=== PATIENT | female | born 1945 | race Caucasian/White ===

== ENCOUNTER → 2024-05-15 | Outpatient (CLI) | payer MEDICARE, BC, SELFPAY ==
--- NOTE | 2024-05-15 13:48 | XR_ITS ---
Examination: Left knee 4 views TECHNIQUE: AP oblique lateral axial left knee 4 views Exam date and time: May 15, 2024 1407 hours INDICATIONS: Acute fracture proximal tibia July 31, 2023 FINDINGS: Postop reduction internal fixation fracture proximal tibia Fracture is healed with stable and satisfactory alignment No patellar dislocation IMPRESSION: Operative reduction internal fixation healed fracture proximal tibia with satisfactory alignment
== END | disposition home or self-care (01) ==
LOC: SDIM 13:41
PROVIDERS: PCP Internal Medicine; Referring Provider Internal Medicine; Visit Provider Internal Medicine
DX: M25.562 Pain in left knee (principal); Z87.81 Personal history of (healed) traumatic fracture
CPT/HCPCS: 73564

== ENCOUNTER → 2024-07-05 | Outpatient (CLI) | payer MEDICARE, BC, SELFPAY ==
--- NOTE | 2024-07-05 16:31 | XR_ITS ---
Examination: PA lateral chest 2 views TECHNIQUE: Upright PA lateral chest 2 views Exam date and time: July 05, 2024 1640 hours Comparison May 02, 2024 INDICATIONS: Shortness of breath beginning one month ago. FINDINGS: Mild heart failure Prosthetic aortic valve Mild to moderate enlargement left ventricle CABG Prominent vascular congestion. Early septal edema at the lung bases IMPRESSION: Mild heart failure
== END | disposition home or self-care (01) ==
PROVIDERS: PCP Internal Medicine; Referring Provider Student in an Organized Health Care Education/Training Program; Visit Provider Student in an Organized Health Care Education/Training Program
DX: I50.89 Other heart failure (principal)
CPT/HCPCS: 71046

== ENCOUNTER 2024-07-09 13:28 | Emergency (ER) | payer MEDICARE, BC, SELFPAY ==
[2024-07-09] VITALS (13 sets, daily range): BP systolic 122–176; BP diastolic 55–71; PULSE 64–82; RESP 15–87; TEMP 36.9–39.4; O2SAT 91–100; BMI 29.2
--- NOTE | 2024-07-09 13:45 | XR_ITS ---
Examination: AP chest single view TECHNIQUE: AP portable sitting chest single view Independent I'm going to return 2024 at 1358 hours Comparison July 05, 2024 INDICATIONS: Shortness of breath today. FINDINGS: Mild heart failure CABG Mild enlargement left ventricle Prominent vascular congestion with early septal edema at the lung bases Consider superimposed pneumonia left base IMPRESSION: Mild heart failure Suspicious for superimposed pneumonia left base
--- NOTE | 2024-07-09 13:45 | EKG_ITS ---
[facility] Test Date: 2024-07-09 Pat Name: STEPHON FARLEY Department: Room: - Gender: Female Equity Research Analyst: : 1945 Requested By: Mckinley Eller Order Number: [id number] Reading MD: Mckinley Eller Measurements Intervals [place] Rate: 77 P: 35 [place]: 162 QRS: -6 QRSD: 88 T: 67 QT: 406 QTc: 459 Interpretive Statements SINUS RHYTHM NONSPECIFIC ST & T-WAVE ABNORMALITY Compared to ECG 03/23/2024 18:20:20 T-wave abnormality now present Myocardial infarct finding no longer present /store/S0/[id number]
--- NOTE | 2024-07-09 13:51 | PD.EDADULT ---
ED General RME/HPI General Chief complaint: Shortness of Breath/Dyspnea Stated complaint: SOB Time Seen by Provider: 07/09/24 13:44 Arrival date/time: 07/09/24 13:28 CC: Shortness of breath with a fall yesterday EMS report the patient had sats 88 to 90% on room air does not wear oxygen at home. The patient is awake alert stating she can use to be short of breath in spite of albuterol inhaler. Patient denies fever however EMS report warm to touch. Related Data Home Medications ?Medication ?Instructions ?Recorded ?Confirmed levothyroxine 50 mcg tablet 50 mcg PO QDAY 12/17/17 11/02/23 atorvastatin 10 mg tablet 10 mg PO QDAY 01/12/20 11/02/23 citalopram 40 mg tablet 40 mg PO QDAY PRN Anxiety 01/12/20 11/02/23 gabapentin 800 mg tablet 300 mg PO QID 05/05/22 11/02/23 fluticasone fur. 200 mcg-umeclid 1 inh inhalation QDAY 09/14/22 11/02/23 62.5 mcg-vilant 25 mcg inhalat.powder (Trelegy Ellipta) albuterol sulfate 90 mcg/actuation 2 puff inhalation BID PRN 09/16/22 11/02/23 aerosol inhaler Shortness Of Breath Or Wheezing pantoprazole 40 mg tablet,delayed 40 mg PO BID 02/25/23 11/02/23 release dicyclomine 10 mg capsule 10 mg PO TID 06/02/23 11/02/23 lorazepam 0.5 mg tablet (Ativan) 0.5 mg PO QDAY PRN Anxiety 06/02/23 11/02/23 Previous Rx's ?Medication ?Instructions ?Recorded aspirin 81 mg capsule 81 mg PO QDAY #30 caps 09/22/22 furosemide 40 mg tablet 40 mg PO QDAY #30 tabs 03/26/24 lisinopril 2.5 mg tablet 2.5 mg PO QDAY #30 tabs 03/26/24 acetaminophen 300 mg-codeine 30 mg 2 tab PO TID PRN pain #20 tabs 07/10/24 tablet albuterol sulfate 90 mcg/actuation 2 inh inhalation QID PRN shortness 07/10/24 aerosol inhaler of breath or wheezing #8.5 grams prednisone 20 mg tablet 40 mg PO DAILY 5 days #10 tabs 07/10/24 Allergies Allergy/AdvReac Type Severity Reaction Status Date / Time adhesive Allergy Intermediate Rash Verified 03/22/24 19:17 fluticasone Allergy Difficulty Verified 03/22/24 19:17 [From Advair Diskus] Breathing salmeterol Allergy Difficulty Verified 03/22/24 19:17 [From Advair Diskus] Breathing Course Course Course Narrative: Upon a more detailed interview with the patient at 1513, the patient is aware that she fell last night secondary to feeling legs wobbly and woozy . Patient thinks it may be due to the cough medicine that was given to her by her doctor in addition to the amoxicillin that she is taken for the flu . Patient is COVID-positive, but significantly weak, daughter states patient lives by herself in a 900 square foot house and is unable to walk from 1 side to the other without falling as evidenced by the fall today. At this time patient needs physical therapy assessment for potential SNF placement. Quality Measures VTE prophylaxis Orders Category Date Time Status Bedside COVID-19 Antigen Test NOW Care 07/09/24 14:25 Completed Bedside COVID-19 Antigen Test NOW Care 07/09/24 15:06 Completed Bedside COVID-19 Antigen Test NOW Care 07/10/24 10:13 Completed Bedside Influenza A&B Antigen Test NOW Care 07/09/24 14:25 Completed Bedside Influenza A&B Antigen Test NOW Care 07/09/24 15:06 Completed Bedside Influenza A&B Antigen Test NOW Care 07/10/24 10:13 Completed Narrow Gauge Operator STAT Care 07/09/24 14:25 Completed Continuous Pulse Oximetry STAT Care 07/09/24 14:25 Completed EKG (ED ONLY) *Do not use* NOW Care 07/09/24 13:45 Completed In and Out Catheter X1PRN Care 07/09/24 14:25 Completed Insert IV NOW Care 07/09/24 14:25 Completed NPO STAT Care 07/09/24 14:25 Completed Strict Intake and Output Routine Care 07/09/24 14:25 Ordered Home Health Referral Routine Cons 07/10/24 10:44 Active Referral Physical Therapy Stat Cons 07/09/24 17:33 Completed Diet Carbohydrate Consistent Low Diet 07/10/[address] head/brain wo con Stat Exams 07/09/24 15:14 Completed EKG (ED Only) Stat Exams 07/09/24 13:45 Ordered XR chest 1V Stat Exams 07/09/24 13:45 Completed B-Type Natriuretic Peptide Stat Lab 07/09/24 14:14 Completed Blood Culture (Lab) Stat Lab 07/09/24 14:40 Results CBC Stat Lab 07/09/24 14:14 Completed Comprehensive Metabolic Panel Stat Lab 07/09/24 14:14 Completed Drug Screen,Urine Stat Lab 07/09/24 15:32 Completed LDH (Lactate Dehydrogenase) Stat Lab 07/09/24 14:14 Completed Lactate (Lactic Acid) Stat Lab 07/09/24 14:47 Completed Lipase Stat Lab 07/09/24 14:14 Completed Magnesium Stat Lab 07/09/24 14:14 Completed Partial Thromboplastin Time Stat Lab 07/09/24 14:14 Completed Phosphorous Stat Lab 07/09/24 14:14 Completed Procalcitonin Stat Lab 07/09/24 14:14 Completed Prothrombin Time with INR Stat Lab 07/09/24 14:14 Completed Troponin I Stat Lab 07/09/24 14:14 Completed Urinalysis Stat Lab 07/09/24 15:32 Completed Urine Culture Stat Lab 07/09/24 15:32 Received ALBUTEROL RT 0.5ml [Proventil Rt 0.5ml] Med 07/09/24 13:53 Discontinued 2.5 mg INH X1 ONE Acetaminophen Tab [Tylenol Tab] Med 07/09/24 15:32 Discontinued 650 mg PO X1 ONE Ibuprofen Tab [Motrin Tab] Med 07/09/24 20:11 Discontinued 600 mg PO X1 ONE Influenza Quad Vaccine Med 07/09/24 14:25 Discontinued 0.5 ml IMI .ONCE ONE Sodium Chloride Rt Tiara 0.9% [NS Rt Tiara 0.9%] Med 07/09/24 13:53 Discontinued 3 ml INH PRN PRN Oxygen Delivery NOW RT 07/09/24 14:25 Completed Vital Signs Vital signs: Vital Signs Temperature 103.0 F H 07/09/24 13:55 Pulse Rate 79 07/09/24 13:55 Respiratory Rate 18 07/09/24 13:55 Blood Pressure 122/71 07/09/24 13:55 Pulse Oximetry (%) 96 07/09/24 13:55 Oxygen Delivery Method Nasal Cannula 07/09/24 13:55 Oxygen Flow Rate 6 07/09/24 13:[address] [facility] Patient data External records reviewed:: [facility] previous records Clinical information provided by:: patient Social determinants that could affect healthcare access:: none Patient has the following chronic illnesses:: COPD How is presenting disease/condition affected by chronic disease/condition?: exacerbated by Evaluation data The following diagnostics were reviewed and interpreted by me:: lab results and radiology exam(s) Lab and/or radiology exams considered but not ordered:: EKG performed at 1439 shows a ventricular rate of 77 SD interval 162 QRS of 88 QTc of [address] segment changes there is large baseline wander into 3 and aVF. Patient is COVID-positive CBC shows no leukocytosis stable anemia no thrombocytopenia CMP shows no acute electrolyte imbalances a mildly elevated creatinine 1.4 no transaminitis or T. bili elevation. BNP at 217 Pro-Pawel and lactic are negative Lipase is normal Urine with 1+ protein Head CT is interpreted by me read by radiology as negative for any acute finding requires emergent or meet intervention. Interpretation Summary: COVID with COPD Medications Medications considered but not ordered:: Patient be discharged home to stay on 2 L nasal cannula oxygen 24/7 for the next 10 days. Medication administrations:: Medication Administration History Discontinued Medications Acetaminophen (Acetaminophen 325 Mg Tablet) 650 mg PO X1 ONE Stop: 07/09/24 15:33 Last Admin: 07/09/24 15:36 Dose: 650 mg Documented By: BECK Albuterol (Albuterol Rt 2.5 Mg/0.5 Ml Nebu) 2.5 mg INH X1 ONE Stop: 07/09/24 13:54 Last Admin: 07/09/24 16:41 Dose: 2.5 mg Documented By: LD Ibuprofen (Ibuprofen Tab 600 Mg Tablet) 600 mg PO X1 ONE Stop: 07/09/24 20:12 Last Admin: 07/09/24 21:11 Dose: 600 mg Documented By: CVL Influenza Virus Vaccine Quadrival (Influenza Virus Quadrivalent 0.5 Ml Syringe) 0.5 ml IMi .ONCE ONE Stop: 07/09/24 14:26 Last Admin: 07/09/24 15:16 Dose: Not Given Documented By: GM Non-Admin Reason: Not Given Comments: PT UP TO DATE WITH FLU SHOT Sodium Chloride (Sodium Chloride Rt Tiara 0.9% 3 Ml Nebu) 3 ml INH PRN PRN PRN Reason: SOLN Stop: 08/08/24 13:52 Last Admin: 07/09/24 16:41 Dose: 3 ml Documented By: LD None Consultations Consultation(s) initiated? (list below): No Diagnosis Differential Diagnosis ED Complaint MDM: COVID-pneumonia CHF Most likely diagnosis given after review of the tests above:: COVID Admission Indicated Admission indicated?: not indicated Explain why admission is indicated or not indicated:: Stable Admission Request Was there a request for admission?: No Disposition Plan Disposition Plan: Discharge Discharge Attestation Discharge Attestation: The patient and all family members were given an opportunity to ask questions and understood the discharge instructions. Discharge instructions specifically effects, indications for sooner follow up or return to the emergency department, and the expected course of current diagnosis. Patient condition: Stable Medical Decision Making Differential Diagnosis Differential Diagnosis: COVID-pneumonia CHF Lab Data 07/09/24 14:14 07/09/24 14:14 Labs: Lab Results 07/09/24 07/09/24 07/09/24 Range/Units 14:14 14:47 15:32 WBC 6.6 (3.6-11.0) Thou/mm3 RBC 3.55 L (4.00-5.20) Miln/mm3 Hgb 10.4 L (12.0-16.0) g/dL Hct 32.3 L (36.0-46.0) % MCV 91 (80-100) fL MCH 29.3 (25.0-35.0) pg MCHC 32.2 (31.0-37.0) g/dl RDW Std Deviation 44.8 (36.4-46.3) fL Plt Count 173 (140-440) Thou/mm3 Neut % (Auto) 66 (37-80) % Lymph % (Auto) 19 (10-50) % [place] % (Auto) 13 H (0-12) % Eos % (Auto) 3 (0-10) % Baso % (Auto) 0 (0-2.5) % Neut # (Auto) 4.3 (1.8-7.7) Thou/mm3 Lymph # (Auto) 1.2 (1.0-4.8) Thou/mm3 [place] # (Auto) 0.8 (0.0-0.8) Thou/mm3 Eos # (Auto) 0.2 (0.0-0.5) Thou/mm3 Baso # (Auto) 0.0 (0.0-0.2) Thou/mm3 Immature Gran # (Auto) 0.02 H (0.00-0.00) Thou/mm3 Absolute Nucleated RBC 0.00 (0.00-0.00) Thou/mm3 Immature Gran % 0 (0-0) % Nucleated RBC % 0 (0) /100 WBC PT 11.8 (9.0-12.2) Seconds INR 1.1 (0.9-1.3) APTT 27.6 (22.0-36.0) Seconds Sodium 136 (136-145) mMol/L Potassium 5.0 (3.4-5.1) mMol/L Chloride 100 (98-107) mMol/L Carbon Dioxide 27.3 (20.0-31.0) mMol/L Anion Gap 9 (7-16) BUN 14 (9-23) mg/dL Creatinine 1.4 H (0.6-1.3) mg/dL Estim Creat Clear Calc 33.1 L (>60) mL/min eGFR 39 L (60 - ) See Note BUN/Creatinine Ratio 10 L (12-20) Ratio Glucose 153 H (74-106) mg/dL Calculated Osmolality 275 (275-295) Lactic Acid 1.8 (0.4-2.0) mMol/L Calcium 8.8 (8.3-10.6) mg/dL Corrected Calcium 8.8 (8.5-10.1) mg/dL Phosphorus 3.1 (2.4-5.1) mg/dL Magnesium 1.6 (1.6-2.6) mg/dL Total Bilirubin 0.6 (0.3-1.2) mg/dL AST 22 (0-34) U/L ALT 14 (10-49) U/L Alkaline Phosphatase 71 (46-116) U/L Lactate Dehydrogenase 370 H (120-246) U/L Troponin I < 0.020 (0.0-0.045) ng/mL B-Natriuretic Peptide 217 H (0-100) pg/mL Total Protein 6.5 (5.7-8.2) gm/dL Albumin 4.1 (3.4-4.8) gm/dL Globulin 2.4 (2.3-3.5) gm/dL Albumin/Globulin Ratio 1.7 (1.2-2.2) Lipase 47 (12-53) U/L Procalcitonin 0.12 (0.0-0.49) ng/ml Ur Collection Type Clean Catch Urine Color Yellow (Lt Yel-Yel) Urine Clarity Clear (Clear/Hazy) Urine pH 6.5 (5.0-7.0) Ur Specific [place] 1.013 (1.001-1.035) Urine Protein 1+ A (Neg - Trace) Urine Glucose (UA) Negative (Negative) Urine Ketones Negative (Negative) Urine Blood Negative (Negative) Urine Nitrite Negative (Negative) Urine Bilirubin Negative (Negative) Urine Urobilinogen (Auto) Negative (0.0-1.0) mg/dL Ur Leukocyte Esterase Negative (Negative) Urine RBC 2 (0-3) /hpf Urine WBC 1 (0-5) /hpf Ur Squamous Epith Cells 0 (0-5) /hpf Urine Bacteria None (None) Urine Opiates Screen Negative (Negative) Urine Fentanyl Screen Negative (Negative) Ur Barbiturates Screen Negative (Negative) U Amphetamin/Meth Scrn Negative (Negative) U Benzodiazepines Scrn Negative (Negative) U Cocaine Metab Screen Negative (Negative) U Marijuana (THC) Screen Negative (Negative) Discharge Plan Plan Patient Disposition: HOME (Self Care) Patient condition on transfer: Stable Prescriptions/Referrals Prescriptions/Med Rec: New prednisone 20 mg tablet 40 mg PO DAILY 5 Days Qty: 10 0RF Taper: Prednisone Taper 20 mg DAILY for 2 Days and 0 Hour 10 mg DAILY for 2 Days and 0 Hour 5 mg DAILY for 7 Days and 0 Hour acetaminophen-codeine 300-30 mg tablet 2 tab PO TID MDD 6 PRN (Reason: pain) Qty: 20 0RF albuterol sulfate 90 mcg/actuation HFA aerosol inhaler 2 inh inhalation QID PRN (Reason: shortness of breath or wheezing) Qty: 8.5 0RF No Action atorvastatin 10 mg Tablet 10 mg PO QDAY citalopram 40 mg tablet 40 mg PO QDAY PRN (Reason: Anxiety) Patient Comments: TAKE ONE TABLET BY MOUTH EVERY EVENING AT BED TIME levothyroxine 50 mcg Tablet 50 mcg PO QDAY Trelegy Ellipta 200-62.5-25 mcg Blister With Device 1 inh INHALATION QDAY Rx Instructions: INHALE 1 PUFF BY INHALATION ROUTE ONCE DAILY AT THE SAME TIME EACH DAY albuterol sulfate 90 mcg/actuation HFA aerosol inhaler 2 puff INHALATION BID PRN (Reason: Shortness Of Breath Or Wheezing) Patient Comments: TAKE 2 PUFFS BY MOUTH TWICE A DAY aspirin 81 mg capsule 81 mg PO QDAY Qty: 30 0RF pantoprazole 40 mg tablet,delayed release (DR/EC) 40 mg PO BID Patient Comments: TAKE 1 TABLET BY MOUTH TWICE A DAY FOR BLEEDING gabapentin 800 mg tablet 300 mg PO QID Patient Comments: TAKE 1 TABLET BY MOUTH EVERY DAY lorazepam [Ativan] 0.5 mg Tablet 0.5 mg PO QDAY PRN (Reason: Anxiety) dicyclomine 10 mg Capsule 10 mg PO TID lisinopril 2.5 mg tablet 2.5 mg PO QDAY Qty: 30 0RF furosemide 40 mg Tablet 40 mg PO QDAY Qty: 30 0RF Referrals: Palomo Redman [Primary Care Provider] - In 1 week Problem List Clinical Impression: COVID-19 Patient/Caregiver Discharge Instructions Education Materials: COVID-19 Home Care Additional Instructions: Discharge instructions from Dr. Craig: --Unfortunately, you have Covid. But fortunately, Covid isn't fatal anymore. --No physical exertion for 3 days to help rest the lungs. ?-No smoking or exposure to smoking or pets or dust or cold or humidity. --Prednisone to help decrease the swelling in the airways. --Albuterol 2 puffs every 4-6 hours as needed for cough or shortness of breath. --Tylenol with codeine for severe cough or severe pain. Initially, take one pill at a time. --See a private doctor next week for recheck. --Seek immediate medical care with worsening or with any concerns. Print Language: Dutch Stand Alone Forms: Nadia Award Info., Work/School Release, Patient Portal Info Letter PA/ROOMS DIRECTOR Supervising Physician PA/ROOMS DIRECTOR Supervising Physician: Mckinley Felipe ENP
--- NOTE | 2024-07-09 13:55 | PC.NURSE ---
RAE; PER REPORT, PT C/O SOB X1.5 HOURS; SUDDEN ONSET. PT HAS HX OF SOB. PT ALSO HAS KNOT IN BACK OF HEAD S/P GLF AT HOME YESTERDAY. RA SAT WAS 84%; PT GIVEN 1 ALBUERTOL TREATMENT NEB; PT'S O2 SAT INCREASED TO 91% AFTER ON 6L NC. 20G IV INSERTED ON LFA EN ROUTE. PT CONNECTED TO MONITORS AT THIS TIME.
[2024-07-09 14:39] LABS: Basophils % (Auto) 0 % (0-2.5); Eosinophils # (Auto) 0.2 Thou/mm3 (0.0-0.5); Eosinophils % (Auto) 3 % (0-10); Hematocrit 32.3 % (36.0-46.0); Hemoglobin 10.4 g/dL (12.0-16.0); Immature Granulocytes % (Auto) 0 % (0-0); Immature Granulocytes Auto 0.02 Thou/mm3 (0.00-0.00); Lymphocytes # (Auto) 1.2 Thou/mm3 (1.0-4.8); Lymphocytes % (Auto) 19 % (10-50); Mean Corpuscular HGB Conc 32.2 g/dl (31.0-37.0); Mean Corpuscular Hemoglobin 29.3 pg (25.0-35.0); Mean Corpuscular Volume 91 fL (80-100); Monocytes # (Auto) 0.8 Thou/mm3 (0.0-0.8); Monocytes % (Auto) 13 % (0-12); Neutrophils # (Auto) 4.3 Thou/mm3 (1.8-7.7); Neutrophils % (Auto) 66 % (37-80); Nucleated Red Blood Cell % 0 /100 WBC (0); Platelet Count 173 Thou/mm3 (140-440); RDW Standard Deviation 44.8 fL (36.4-46.3); Red Blood Count 3.55 Miln/mm3 (4.00-5.20); White Blood Count 6.6 Thou/mm3 (3.6-11.0)
[2024-07-09 14:45] LABS: INR 1.1 (0.9-1.3); Partial Thromboplastin Time 27.6 Seconds (22.0-36.0); Prothrombin Time 11.8 Seconds (9.0-12.2)
[2024-07-09 14:49] LABS: B-Type Natriuretic Peptide 217 pg/mL (0-100)
[2024-07-09 14:58] LABS: Alanine Aminotransferase 14 U/L (10-49); Albumin, Serum 4.1 gm/dL (3.4-4.8); Albumin/Globulin Ratio 1.7 (1.2-2.2); Alkaline Phosphatase 71 U/L (46-116); Anion Gap 9 (7-16); Aspartate Amino Transferase 22 U/L (0-34); BUN/Creatinine Ratio 10 Ratio (12-20); Bilirubin,Total 0.6 mg/dL (0.3-1.2); Blood Urea Nitrogen 14 mg/dL (9-23); Calcium 8.8 mg/dL (8.3-10.6); Calcium (Corrected) 8.8 mg/dL (8.5-10.1); Carbon Dioxide 27.3 mMol/L (20.0-31.0); Chloride 100 mMol/L (98-107); Creatinine (Component) 1.4 mg/dL (0.6-1.3); Estimated Creatinine Clearance 33.1 mL/min (>60); Globulin 2.4 gm/dL (2.3-3.5); Glucose 153 mg/dL (74-106); LDH (Lactate Dehydrogenase) 370 U/L (120-246); Lipase 47 U/L (12-53); Magnesium 1.6 mg/dL (1.6-2.6); Osmolality,Calculated 275 (275-295); Phosphorous 3.1 mg/dL (2.4-5.1); Procalcitonin 0.12 ng/ml (0.0-0.49); Sodium 136 mMol/L (136-145); Total Protein 6.5 gm/dL (5.7-8.2); Troponin I < 0.020 ng/mL (0.0-0.045); eGFR 39 See Note
[2024-07-09 15:03] LABS: Lactate (Lactic Acid) 1.8 mMol/L (0.4-2.0)
--- NOTE | 2024-07-09 15:14 | XR_ITS ---
Examination: CT brain head without contrast. 2-D sagittal coronal reconstructions Date and time of exam:July 09, 2024 1542 hours INDICATIONS: Patient fell today with injury to back of head, head pain COMPARISON: July 31, 2023 CTDI: vol (mGy):51 DLP: (mGycm):1057 Technique: Multiple CT axial sections of the brain have been obtained, 5 mm slice thickness. Contrast has not been administered. 2-D sagittal, coronal reconstructions have been obtained Low dose protocols were performed. One or more of the following dose reduction techniques were used; automated exposure control, adjustment of the mA and/or KV according to patient size, use of iterative reconstruction technique. Findings: No significant ventricular enlargement. Intra-axial or extra-axial hemorrhage density is not seen. No mass effect or midline shift Basal cisterns are not remarkable. Fourth ventricle is midline. Cranial vault intact. Again noted left parafalcine frontal calcification Impression: Negative for acute hemorrhage, mass effect or midline shift
[2024-07-09] MEDS: ACETAMINOPHEN 325 MG TABLET 650 MG PO (15:36)
[2024-07-09 15:47] LABS: Collection Type, Urine Clean Catch; Squamous Epithelial Cell,Urine 0 /hpf (0-5)
[2024-07-09 16:11] LABS: Bilirubin,Urine Negative (Negative); Blood,Urine Negative (Negative); Clarity,Urine Clear (Clear/Hazy); Color,Urine Yellow (Lt Yel-Yel); Glucose, Urine Negative (Negative); Ketones,Urine Negative (Negative); Leukocyte Esterase,Urine Negative (Negative); Nitrite,Urine Negative (Negative); PH,Urine 6.5 (5.0-7.0); Protein,Urine 1+ (Neg - Trace); RBC,Urine 2 /hpf (0-3); Specific Gravity,Urine 1.013 (1.001-1.035); Urobilinogen,Urine Negative mg/dL (0.0-1.0); WBC,Urine 1 /hpf (0-5)
[2024-07-09 16:19] LABS: Amphetamine/Methamp Scrn,U Negative (Negative); Barbiturate Screen,Urine Negative (Negative); Benzodiazepines Screen,Urine Negative (Negative); Benzoylecgonine Screen, Ur Negative (Negative); Fentanyl Screen,Urine Negative (Negative); Opiate Screen,Urine Negative (Negative); THC Screen,Urine Negative (Negative)
--- NOTE | 2024-07-09 16:32 | PC.NURSE ---
RT CALLED AT THIS TIME AND MADE AWARE PT HAS ALBUTEROL GUSTABO ORDER. PER RT, WILL GO SEE PT SOON.
[2024-07-09] MEDS: ALBUTEROL RT 2.5 MG/0.5 ML NEBU INH (16:41)
[2024-07-09] MEDS: SODIUM CHLORIDE RT SOL 0.9% 3 ML NEBU INH (16:41)
--- NOTE | 2024-07-09 17:26 | PC.CC ---
Gabriella BLUE was consulted regarding patient by VALENTINE Felipe. He reports the patient tested positive for COVID, patient lives home alone and can barely ambulate due to generalized weakness. VALENTINE Felipe reports he will be submitting a PT eval for tomorrow to be completed for possible SNF or Home Health. The family reported to him that the entire family contracted COVID. MIRZA made VALENTINE Felipe aware that patient would need 3 midnight stays for SNF.
[2024-07-09] MEDS: IBUPROFEN TAB 600 MG TABLET PO (21:11)
--- NOTE | 2024-07-10 01:47 | PD.EDADDENDU ---
Emergency Room Addendum Addendum Narrative: 2300: Care assumed from Mckinley Felipe NP, the previous shift emergency physician. Past medical, surgical, social and family history reviewed. Vitals and home medications reviewed. I will assume the care of the patient at this time pending vp digital marketing social media and crm, PT eval and possible SNF placement. Please refer to the emergency department record for history and examination from initial visit.? Physical exam by me shows patient under no acute distress at this time. 0600: Patient was signed out to Dr. Craig. Past medical, surgical, social and family history reviewed. Vitals and home medications reviewed. Results and treatment plan discussed. They will assume the care of the patient at this time and will follow the patient, pending vp digital marketing social media and crm consult for possible placement.
[2024-07-10 05:24] VITALS: BP 161/59; PULSE 60; RESP 18; TEMP 36.5; O2SAT 98
--- NOTE | 2024-07-10 05:26 | PC.NURSE ---
vitals taken. pt can ambulate to bathroom. pt denied toileting needs at this time
--- NOTE | 2024-07-10 05:38 | PC.NURSE ---
assisted pt out of bed. stand by assist to the bathroom. pt independent while using toilet and heather care. Pt back to bed and hooked up to patient monitor.
--- NOTE | 2024-07-10 07:47 | PD.EDADDENDU ---
Emergency Room Addendum <Radha Parikh - Last Filed: 07/10/24 10:48> Addendum Narrative: At 6 AM on 07/10/2024, the care of the patient was transferred from Dr. Steiner, see her notes for complete H&P and ED course. I reviewed all diagnostic test results: My interpretation of the chest x-ray is mild heart failure. My review of the head CT is negative for acute hemorrhage, mass effect or midline shift. Blood tests and urine tests At this point, diagnoses include Treatment here included Significant improvement 1012: PT has evaluated the patient in the ED, they advised sending patient home with home health. Sawyer Craig MD <Sawyer Craig MD - Last Filed: 07/10/24 11:29> Addendum Narrative: At 6 AM on 07/10/2024, the care of the patient was transferred from Dr. Steiner, see her notes for previous notes and ED course. I reviewed all diagnostic test results: At this point, diagnoses include COVID. Recommended a trial of treatment at home. 1012: PT has evaluated the patient in the ED, they advised sending patient home with home health. Discharge instructions from Dr. Craig: --Unfortunately, you have Covid. But fortunately, Covid isn't fatal anymore. --No physical exertion for 3 days to help rest the lungs. ?-No smoking or exposure to smoking or pets or dust or cold or humidity. --Prednisone to help decrease the swelling in the airways. --Albuterol 2 puffs every 4-6 hours as needed for cough or shortness of breath. --Tylenol with codeine for severe cough or severe pain. Initially, take one pill at a time. --See a private doctor next week for recheck. --Seek immediate medical care with worsening or with any concerns. Sawyer Craig MD
[2024-07-10 08:00] VITALS: BP 172/71; BP 172/76; PULSE 67; RESP 18; TEMP 36.4; O2SAT 96
--- NOTE | 2024-07-10 10:24 | PC.NURSE ---
Per physical therapy, Pt is clear and can go home with home health physical therapy. Dr. Craig made aware.
--- NOTE | 2024-07-10 10:33 | PC.PT ---
PT eval completed. Patient is I with ambulation with walker (Pls see PT eval notes). Patient will need homehealth PT for safety assessment at home.
--- NOTE | 2024-07-10 11:08 | PC.CC ---
Addendum entered by Alphonso Chavarria II 07/10/24 11:27: Pt accepted to the following agencies: [facility] 07/11/24 [facility] 07/11/24 [facility] within 48 hours Ivan ASW met with pt at bedside, utilizing appropriate PPE due to pts COVID status. ASW introduced self and role in pt care. ASW explained reason for encounter. ASW presented accepting HH agencies, with pt having no preference. Per pt she was opened to [facility] after D/c from SNF a few months ago. [id number] spoke with Dexter Byrnes with [facility], SOC set for 07/11/24. ASW met with pt to provide update. Original Note: Pt Amanda Snider is a 78 yr old female to ED for SOB. Pt kept in ED overnight for PT eval and possible SNF placement. PT eval completed with recommendation for PT with home health. Pt clinical packet uploaded to [employer], awaiting responses from HH agencies to present to pt at this time.
[2024-07-10 12:18] VITALS: BP 164/76; PULSE 77; RESP 18; TEMP 37.1; O2SAT 99
--- NOTE | 2024-07-13 11:29 | PC.CC ---
HH referral was sent by Bebeto from ED and [facility] was booked. Start of care date with [facility] was 07/12/24.
== END 2024-07-10 12:19 | disposition home or self-care (01) ==
PROVIDERS: Registered Nurse General Practice; Emergency Provider Emergency Medicine; PCP Internal Medicine
DX: U07.1 COVID-19 (principal); I50.9 Heart failure, unspecified; J44.9 Chronic obstructive pulmonary disease, unspecified; R94.31 Abnormal electrocardiogram [ECG] [EKG]; S09.90XA Unspecified injury of head, initial encounter; W19.XXXA Unspecified fall, initial encounter; Z79.51 Long term (current) use of inhaled steroids
CPT/HCPCS: 51701; 36415; 70450; 71045; 80053; 80307; 81001; 83605; 83615; 83690; 83735; 83880; 84100; 84145; 84484; 85025; 85610; 85730; 87040; 87086; 87400; 87811; 90471; 93005; 94640; 99284; A9270

== ENCOUNTER 2024-07-18 16:53 | Emergency (ER) | payer MEDICARE, BC, SELFPAY ==
[2024-07-18 17:20] VITALS: BP 100/62; PULSE 82; RESP 20; TEMP 37.1; O2SAT 89; BMI 28.3
--- NOTE | 2024-07-18 17:20 | PD.EDRME ---
Rapid Medical Screening Exam RME Arrival date/time: 07/18/24 16:53 78 yo f present to ED for c/o worsen sob. I have greeted and performed a focused initial assessment of this patient. A comprehensive ED assessment and evaluation of the patient, analysis of all test results, and completion of the medical decision making process will be conducted by additional ED providers. Chief Complaint: Shortness of Breath/Dyspnea Time Seen by Provider: 07/18/24 17:12
--- NOTE | 2024-07-18 17:21 | EKG_ITS ---
[facility] Test Date: 2024-07-18 Pat Name: STEPHON FARLEY Department: Room: - Gender: Female [employer]: : 1945 Requested By: Alan Moreno Order Number: [id number] Reading MD: Alan Moreno Measurements Intervals [place] Rate: 76 P: 14 OR: 135 QRS: -23 QRSD: 98 T: 63 QT: 403 QTc: 453 Interpretive Statements SINUS RHYTHM POSSIBLE LEFT ATRIAL ENLARGEMENT [-0.1mV P-WAVE IN V1/V2] POSSIBLE ANTERIOR MYOCARDIAL INFARCTION , OF INDETERMINATE AGE [30 ms Q WAVE IN V3/V4, OR R < 0.2 mV IN V4] Compared to ECG 07/09/2024 14:39:42 Myocardial infarct finding now present T-wave abnormality no longer present /store/S0/[id number]
--- NOTE | 2024-07-18 17:21 | XR_ITS ---
Examination: PA lateral chest 2 views TECHNIQUE: Upright PA and lateral chest 2 views Exam date and time client Brice Hilario 2024 1738 hours Comparison July 09, 2024 INDICATIONS: Intermittent fever beginning June 08, 2024, history recent cold infection. FINDINGS: Mild prominence left ventricle Prosthetic aortic valve No lobar pneumonia No pulmonary edema Moderate osteopenia IMPRESSION: No lobar pneumonia or pulmonary edema
[2024-07-18 17:22] VITALS: O2SAT 96
[2024-07-18 18:24] LABS: Basophils % (Auto) 0 % (0-2.5); Eosinophils # (Auto) 0.4 Thou/mm3 (0.0-0.5); Eosinophils % (Auto) 4 % (0-10); Hematocrit 35.2 % (36.0-46.0); Hemoglobin 11.2 g/dL (12.0-16.0); Immature Granulocytes % (Auto) 1 % (0-0); Immature Granulocytes Auto 0.12 Thou/mm3 (0.00-0.00); Lymphocytes # (Auto) 2.5 Thou/mm3 (1.0-4.8); Lymphocytes % (Auto) 24 % (10-50); Mean Corpuscular HGB Conc 31.8 g/dl (31.0-37.0); Mean Corpuscular Hemoglobin 28.6 pg (25.0-35.0); Mean Corpuscular Volume 90 fL (80-100); Monocytes # (Auto) 0.8 Thou/mm3 (0.0-0.8); Monocytes % (Auto) 7 % (0-12); Neutrophils # (Auto) 6.6 Thou/mm3 (1.8-7.7); Neutrophils % (Auto) 63 % (37-80); Nucleated Red Blood Cell % 0 /100 WBC (0); Platelet Count 316 Thou/mm3 (140-440); RDW Standard Deviation 42.8 fL (36.4-46.3); Red Blood Count 3.91 Miln/mm3 (4.00-5.20); White Blood Count 10.4 Thou/mm3 (3.6-11.0)
[2024-07-18 18:42] LABS: Alanine Aminotransferase 15 U/L (10-49); Albumin, Serum 3.9 gm/dL (3.4-4.8); Albumin/Globulin Ratio 1.3 (1.2-2.2); Alkaline Phosphatase 72 U/L (46-116); Anion Gap 7 (7-16); Aspartate Amino Transferase 13 U/L (0-34); BUN/Creatinine Ratio 15 Ratio (12-20); Bilirubin,Total 0.4 mg/dL (0.3-1.2); Blood Urea Nitrogen 19 mg/dL (9-23); Calcium 8.9 mg/dL (8.3-10.6); Carbon Dioxide 30.4 mMol/L (20.0-31.0); Chloride 101 mMol/L (98-107); Creatinine (Component) 1.3 mg/dL (0.6-1.3); Estimated Creatinine Clearance 35.1 mL/min (>60); Glucose 140 mg/dL (74-106); Osmolality,Calculated 279 (275-295); Potassium 4.8 mMol/L (3.4-5.1); Sodium 138 mMol/L (136-145); Total Protein 6.9 gm/dL (5.7-8.2); eGFR 43 See Note
[2024-07-18 18:59] LABS: B-Type Natriuretic Peptide 106 pg/mL (0-100)
[2024-07-18 19:00] LABS: Troponin I < 0.020 ng/mL (0.0-0.045)
[2024-07-18 19:48] VITALS: BP 98/60; PULSE 77; RESP 18; TEMP 37; O2SAT 93
--- NOTE | 2024-07-18 19:54 | PD.EDSOB ---
ED SOB =RME/HPI General Chief Complaint: Shortness of Breath/Dyspnea Stated Complaint: SOB X 1 month Time Seen by Provider: 07/18/24 17:12 Source: patient Arrival date/time: 07/18/24 16:53 Mode of arrival: ambulatory Limitations: no limitations RME / HPI RME / HPI Narrative: 07/18/24 16:53 78 yo f present to ED for c/o worsen sob. I have greeted and performed a focused initial assessment of this patient. A comprehensive ED assessment and evaluation of the patient, analysis of all test results, and completion of the medical decision making process will be conducted by additional ED providers. Dr. London?s Main ED Evaluation: 78-year-old female presents to the emergency department with worsening respiratory symptoms. The patient was evaluated by her regular doctor earlier today, where a chest X-ray was performed. The physician expressed concern for possible pneumonia. The patient reports no fever over the past couple of days but notes a progressive worsening of symptoms since her illness began on 06/08/2024. Her initial symptoms were consistent with influenza, and she subsequently tested positive for COVID-19 on 07/09/2023 when she presented to the emergency department with shortness of breath following a fall. The patient underwent repeat COVID-19 testing today, which returned negative. In addition to her respiratory symptoms, she reports occasional dizziness and notes that her blood pressure typically runs on the lower side. Her medical history is significant for chronic obstructive pulmonary disease (COPD). She denies a personal history of emphysema. The patient has a remote history of smoking but quit 26 years ago. She typically uses oxygen on an as-needed basis but is currently requiring continuous oxygen support due to her symptoms. Related Data Home Medications ?Medication ?Instructions ?Recorded ?Confirmed levothyroxine 50 mcg tablet 50 mcg PO QDAY 12/17/17 11/02/23 atorvastatin 10 mg tablet 10 mg PO QDAY 01/12/20 11/02/23 citalopram 40 mg tablet 40 mg PO QDAY PRN Anxiety 01/12/20 11/02/23 gabapentin 800 mg tablet 300 mg PO QID 05/05/22 11/02/23 fluticasone fur. 200 mcg-umeclid 1 inh inhalation QDAY 09/14/22 11/02/23 62.5 mcg-vilant 25 mcg inhalat.powder (Trelegy Ellipta) albuterol sulfate 90 mcg/actuation 2 puff inhalation BID PRN 09/16/22 11/02/23 aerosol inhaler Shortness Of Breath Or Wheezing pantoprazole 40 mg tablet,delayed 40 mg PO BID 02/25/23 11/02/23 release dicyclomine 10 mg capsule 10 mg PO TID 06/02/23 11/02/23 lorazepam 0.5 mg tablet (Ativan) 0.5 mg PO QDAY PRN Anxiety 06/02/23 11/02/23 Previous Rx's ?Medication ?Instructions ?Recorded aspirin 81 mg capsule 81 mg PO QDAY #30 caps 09/22/22 furosemide 40 mg tablet 40 mg PO QDAY #30 tabs 03/26/24 lisinopril 2.5 mg tablet 2.5 mg PO QDAY #30 tabs 03/26/24 acetaminophen 300 mg-codeine 30 mg 2 tab PO TID PRN pain #20 tabs 07/10/24 tablet albuterol sulfate 90 mcg/actuation 2 inh inhalation QID PRN shortness 07/10/24 aerosol inhaler of breath or wheezing #8.5 grams doxycycline hyclate 100 mg tablet 100 mg PO BID #20 tabs 07/18/24 prednisone 50 mg tablet 50 mg PO QDAY 6 days #6 tabs 07/18/24 Allergies Allergy/AdvReac Type Severity Reaction Status Date / Time adhesive Allergy Intermediate Rash Verified 03/22/24 19:17 fluticasone (From Advair Allergy Difficulty Verified 03/22/24 19:17 Diskus) Breathing salmeterol (From Advair Allergy Difficulty Verified 03/22/24 19:17 Diskus) Breathing Review of Systems Review of Systems Systems Reviewed: All systems reviewed, normal except as documented ED Exam Narrative Physical exam: GENERAL: In general the patient is awake, interactive, in an emergency department gurney. Fatigue present. HEAD/EYES/EARS/NOSE/THROAT: normo-cephalic, atraumatic, mucus membranes are moist. No cervical tenderness palpation midline. Supple neck. CARDIOVASCULAR: regular rate and regular rhythm, no murmurs, heart sounds are not distant, strong pulses in all four extremities that are equal and symmetric bilateral upper and lower extremities, normal capillary refill. CHEST/PULMONARY: normal chest rise and fall. No use of accessory muscles. Mild bilateral wheezing. ABDOMEN: soft, not tender, no masses appreciated BACK: normal range of motion without pain. NEUROLOGICAL: cranio-facial features are symmetric, moves all four extremities equally without obvious limitations or weakness. EXTREMITY: no tenderness to palpation over the long bones or large joints of the bilateral upper and lower extremities, no joint swelling, no joint erythema, no signs of trauma, no unilateral leg swelling and no peripheral edema. SKIN: warm, dry, well-perfused, no jaundice, no rash, no telangiectasias or petechia. PSYCH: calm, cooperative, no evidence of psychosis or agitation General Limitations: Present no limitations Course Course Course Narrative: CXR is ordered for determining etiology of shortness of breath. Quality Measures none Orders Category Date Time Status Bedside Influenza A&B Antigen Test NOW Care 07/18/24 17:21 Completed EKG (ED ONLY) *Do not use* NOW Care 07/18/24 17:21 Completed EKG (ED Only) Stat Exams 07/18/24 17:21 Draft XR chest 2V Stat Exams 07/18/24 17:21 Completed BNP [B-Type Natriuretic Peptide] Stat Lab 07/18/24 17:56 Completed CBC Stat Lab 07/18/24 17:56 Completed CMP [Comprehensive Metabolic Panel] Stat Lab 07/18/24 17:56 Completed Troponin I Stat Lab 07/18/24 17:56 Completed Albuterol/Ipratr Rt Tiara [Duoneb Rt Tiara] Med 07/18/24 20:39 Discontinued 3 ml INH X1 ONE Doxycycline [Vibramycin] Med 07/18/24 20:16 Discontinued 100 mg PO X1 ONE Sodium Chloride 0.9% 500 ml [Ns] 500 ml Med 07/18/24 20:16 Discontinued IV 999 mls/hr predniSONE Med 07/18/24 20:16 Discontinued 60 mg PO X1 ONE Oxygen Delivery NOW RT 07/18/24 17:22 Active Vital Signs Vital signs: Vital Signs Temperature 98.8 F 07/18/24 17:20 Pulse Rate 82 07/18/24 17:20 Respiratory Rate 20 07/18/24 17:20 Blood Pressure 100/62 07/18/24 17:20 Pulse Oximetry (%) 89 L 07/18/24 17:20 Oxygen Delivery Method Room Air 07/18/24 17:20 Procedures -ED EKG Interpretation #1: Additional EKG comment: I personally interpreted an EKG performed on 07/18/2024 at 1725 which shows NSR with a heart rate of 76 bpm, normal axis, and a QTc of 453 ms. Shortness of Breath / Dyspnea MDM Narrative MDM Narrative:: Differential diagnosis includes bacterial or viral infection, dehydration, possible electrolyte abnormality, and low suspicion for myocardial infarction (MS). Scribe Attestation: I, Matti Hawthorne, am scribing for and in the presence of Dr. London. Provider Notation: Although this document has been carefully reviewed, there may still be some phonetic and other typographical errors. These errors are purely grammatical due to imperfections in the software program and should not be construed in any way to compromise the substance of the patient's medical care during this visit. Patient data External records reviewed:: [facility] previous records Clinical information provided by:: patient Social determinants that could affect healthcare access:: none Patient has the following chronic illnesses:: COPD How is presenting disease/condition affected by chronic disease/condition?: exacerbated by Evaluation data The following diagnostics were reviewed and interpreted by me:: lab results and radiology exam(s) Lab and/or radiology exams considered but not ordered:: n/a Interpretation Summary: I personally reviewed the radiology data and agree with the radiologist's interpretation. Examination: PA lateral chest 2 views TECHNIQUE: Upright PA and lateral chest 2 views Exam date and time client Brice 2024 1738 hours Comparison July 09, 2024 INDICATIONS: Intermittent fever beginning June 08, 2024, history recent cold infection. FINDINGS: Mild prominence left ventricle Prosthetic aortic valve No lobar pneumonia No pulmonary edema Moderate osteopenia IMPRESSION: No lobar pneumonia or pulmonary edema Dictated By: Reji Dick MD Medications / Prescriptions Medications or Prescriptions considered but not ordered:: n/a Medication administrations:: Medication Administration History Discontinued Medications Albuterol/Ipratropium (Albuterol/Ipratropium (Duoneb) Rt Tiara 3 Ml Nebu) 3 ml INH X1 ONE Stop: 07/18/24 20:40 Last Admin: 07/18/24 20:57 Dose: 3 ml Documented By: GRAEME Doxycycline Hyclate (Doxycycline 100 Mg Tablet) 100 mg PO X1 ONE Stop: 07/18/24 20:17 Last Admin: 07/18/24 20:33 Dose: 100 mg Documented By: YOLANDA Sodium Chloride (Ns) 500 mls @ 999 mls/hr IV .Q31M ONE Stop: 07/18/24 20:46 Last Infusion: 07/18/24 20:45 Dose: Infused Documented By: Admin: 07/18/24 20:10 Dose: 999 mls/hr Documented By: YOLANDA Prednisone (Prednisone 20 Mg Tablet) 60 mg PO X1 ONE Stop: 07/18/24 20:17 Last Admin: 07/18/24 20:34 Dose: 60 mg Documented By: YOLANDA as above, if any Consultations Consultation(s) initiated? (list below): No Diagnosis Shortness of Breath Differential Diagnosis: other (see narrative) Most likely diagnosis given after review of the tests above:: Acute exacerbation of chronic obstructive pulmonary disease Admission Indicated Admission indicated?: not indicated Admission Request Was there a request for admission?: No Disposition Plan Disposition Plan: Discharge Discharge Attestation Discharge Attestation: The patient and all family members were given an opportunity to ask questions and understood the discharge instructions. Discharge instructions specifically effects, indications for sooner follow up or return to the emergency department, and the expected course of current diagnosis. Patient condition: Stable Discharge Plan Plan Patient Disposition: HOME (Self Care) Patient condition on transfer: Stable Prescriptions/Referrals Prescriptions/Med Rec: New doxycycline hyclate 100 mg tablet 100 mg PO BID Qty: 20 0RF prednisone 50 mg tablet 50 mg PO QDAY 6 Days Qty: 6 0RF No Action atorvastatin 10 mg Tablet 10 mg PO QDAY citalopram 40 mg tablet 40 mg PO QDAY PRN (Reason: Anxiety) Patient Comments: TAKE ONE TABLET BY MOUTH EVERY EVENING AT BED TIME levothyroxine 50 mcg Tablet 50 mcg PO QDAY Trelegy Ellipta 200-62.5-25 mcg Blister With Device 1 inh INHALATION QDAY Rx Instructions: INHALE 1 PUFF BY INHALATION ROUTE ONCE DAILY AT THE SAME TIME EACH DAY albuterol sulfate 90 mcg/actuation HFA aerosol inhaler 2 puff INHALATION BID PRN (Reason: Shortness Of Breath Or Wheezing) Patient Comments: TAKE 2 PUFFS BY MOUTH TWICE A DAY aspirin 81 mg capsule 81 mg PO QDAY Qty: 30 0RF pantoprazole 40 mg tablet,delayed release (DR/EC) 40 mg PO BID Patient Comments: TAKE 1 TABLET BY MOUTH TWICE A DAY FOR BLEEDING acetaminophen-codeine 300-30 mg tablet 2 tab PO TID MDD 6 PRN (Reason: pain) Qty: 20 0RF albuterol sulfate 90 mcg/actuation HFA aerosol inhaler 2 inh inhalation QID PRN (Reason: shortness of breath or wheezing) Qty: 8.5 0RF gabapentin 800 mg tablet 300 mg PO QID Patient Comments: TAKE 1 TABLET BY MOUTH EVERY DAY lorazepam [Ativan] 0.5 mg Tablet 0.5 mg PO QDAY PRN (Reason: Anxiety) dicyclomine 10 mg Capsule 10 mg PO TID lisinopril 2.5 mg tablet 2.5 mg PO QDAY Qty: 30 0RF furosemide 40 mg Tablet 40 mg PO QDAY Qty: 30 0RF Referrals: Palomo Redman [Primary Care Provider] - In 1 week Problem List Clinical Impression: Acute exacerbation of chronic obstructive pulmonary disease Patient/Caregiver Discharge Instructions Education Materials: ED COPD Flare Additional Instructions: It was a pleasure seeing you today. I will start the antibiotics as per requested by your primary care physician. Please take the steroids to completion as directed. Please continue your home medications as per your primary care physician. Follow-up with them in the next 48 to 72 hours. Return to emergency department for any worsening symptoms, you feel worse, you have to increase your oxygen level, shortness of breath, or any other concerns Print Language: Trinidadian Stand Alone Forms: [employer] Award Info., Patient Portal Info Letter
[2024-07-18 20:09] VITALS: PULSE 74; RESP 20
[2024-07-18] MEDS: SODIUM CHLORIDE 0.9% 500 ML 500 ML 999 ML IV (20:10)
[2024-07-18] MEDS: DOXYCYCLINE 100 MG TABLET PO (20:33)
[2024-07-18] MEDS: predniSONE 20 MG TABLET 60 MG PO (20:34)
[2024-07-18 20:44] VITALS: BP 159/57; PULSE 74; RESP 20; O2SAT 100
[2024-07-18 20:57] VITALS: PULSE 75; RESP 18; O2SAT 100
[2024-07-18] MEDS: ALBUTEROL/IPRATROPIUM (Duoneb) RT SOL 3 ML NEBU INH (20:57)
== END 2024-07-18 22:00 | disposition home or self-care (01) ==
PROVIDERS: Physician Assistant; Emergency Provider Emergency Medicine; PCP Internal Medicine
DX: J44.1 Chronic obstructive pulmonary disease with (acute) exacerbation (principal); Z87.891 Personal history of nicotine dependence; Z99.81 Dependence on supplemental oxygen; Z86.16 Personal history of COVID-19
CPT/HCPCS: 36415; 71046; 80053; 83880; 84484; 85025; 87400; 93005; 94640; 96360; 99284; A9270; J7040; J7512

== ENCOUNTER → 2024-10-09 | Outpatient (CLI) | payer MEDICARE, BC, SELFPAY ==
--- NOTE | 2024-10-09 13:14 | XR_ITS ---
Examination: PA lateral chest 2 views TECHNIQUE: Upright PA lateral chest 2 views Exam date and time: October 01, 2024 1609 hours INDICATIONS: Diagnosis chronic obstructive pulmonary disease chronic shortness of breath FINDINGS: Mild prominence left ventricle Aortic valve replacement Median sternotomy wires. No pneumonia or pulmonary edema IMPRESSION: No pneumonia or pulmonary edema
== END | disposition home or self-care (01) ==
LOC: SMRI 13:05
PROVIDERS: PCP Internal Medicine; Referring Provider Internal Medicine; Visit Provider Internal Medicine
DX: J44.9 Chronic obstructive pulmonary disease, unspecified (principal); R06.02 Shortness of breath
CPT/HCPCS: 71046